=== PATIENT | female | born 1990 | race African-American/Black ===

== ENCOUNTER 2020-02-05 08:00 | Outpatient (CLI) | payer MEDICAID | END 2020-02-05 23:59 | disposition home or self-care (01) | LOC: LAB.WCP 08:00 | PROVIDERS: ATTEND Advanced Practice Midwife | DX: O20.0 Threatened abortion (principal); Z3A.00 Weeks of gestation of pregnancy not specified | CPT/HCPCS: 36415; 84702 ==

== ENCOUNTER 2020-02-07 09:53 | Outpatient (CLI) | payer MEDICAID | END 2020-02-07 23:59 | disposition home or self-care (01) | LOC: LAB.WCP 09:53 | PROVIDERS: ATTEND Advanced Practice Midwife | DX: O20.0 Threatened abortion (principal); Z3A.00 Weeks of gestation of pregnancy not specified | CPT/HCPCS: 36415; 84702 ==

== ENCOUNTER 2020-02-08 11:32 | Emergency (ER) | payer MEDICAID ==
--- NOTE | 2020-02-08 12:06 | ED Physician Documentation ---
PD HPI FEMALE - Stated complaint Stated Complaint: FEM - Chief complaint Chief Complaint: Abd Pain - History obtained from History obtained from: Patient - History of Present Illness Timing - onset: How many days ago (few) Timing - duration: Days (few) Timing - details: Abrupt onset, Still present, Waxing and waning Associated symptoms: Pelvic pain, Vaginal bleeding. No: Fever, Vaginal discharge, Genital sore/lesion, Dysuria Contributing factors: (8 weeks by dates. She does have history of endometriosis and has been having issues with getting conception and was excited about being .) [employer] History: G (1), P (0) Similar symptoms before: Has not had sx before Recently seen: Clinic (She was seen in the clinic a few days ago with the onset of some cramping and spotting. She had a quantitative hCG that was in the 400s. She had a repeat 1 yesterday that was 127. She was having increased cramping and pain today and was referred by Dr. bowling to the ER for ultrasound and evaluation to ensure no ectopic or intra-abdominal bleeding and to better evaluate for the status.) Review of Systems Constitutional: denies: Fever, Chills Cardiac: denies: Chest pain / pressure Respiratory: denies: Dyspnea, Cough GI: reports: Abdominal Pain, Nausea (with the cramps). denies: Vomiting, Diarrhea : reports: Now EGA (8 wks). denies: Dysuria, Discharge Neurologic: reports: Generalized weakness. denies: Near syncope, Syncope PD PAST MEDICAL HISTORY - Past Medical History Cardiovascular: None Respiratory: None [employer]IATE: Endometriosis - Present Medications Home Medications: Ambulatory Orders Medication Instructions Recorded Confirmed Hydrocodone/Acetaminophen [[place] 1 each PO Q6H PRN #15 tablet 02/08/20 5-325 Tablet] Naproxen 500 mg PO BID #20 tablet 02/08/20 Ondansetron Odt [Zofran] 4 mg TL Q6H PRN #10 tablet 02/08/20 - Allergies Allergies/Adverse Reactions: Allergies Allergy/AdvReac Type Severity Reaction Status Date / Time No Known Drug Allergies Allergy Verified 02/08/20 11:36 PD ED PE NORMAL - Vitals Vital signs reviewed: Yes - General General: Alert and oriented X 3, Well developed/nourished, Other (Appears anxious and also tearful and in pain.) - Cardiac Cardiac: RRR (regular but tachycardic), No murmur - Respiratory Respiratory: Clear bilaterally - Abdomen Abdomen: Normal bowel sounds, Soft, Non distended, No organomegaly, Other (Some tenderness in the suprapubic area but no rebound or percussion tenderness. The upper abdomen is nontender.) - Female Female : Deferred - Rectal Rectal: Deferred - Back Back: No CVA TTP - Derm Derm: Normal color, Warm and dry - Neuro Neuro: Alert and oriented X 3, No motor deficit, Normal speech - Psych Psych: No: Normal mood (sad and tearful) Results - Vitals Vitals: Vital Signs - 24 hr 02/08/20 02/08/20 02/08/20 11:36 12:01 12:30 Temperature 37.1 C Heart Rate 117 H 110 H 100 Respiratory 18 20 Rate Blood Pressure 140/104 H 115/93 H O2 Saturation 100 99 100 02/08/20 15:28 Temperature 36.9 C Heart Rate 89 Respiratory Rate Blood Pressure 125/75 O2 Saturation 100 Oxygen O2 Source Room air - Labs Labs: Laboratory Tests 02/08/20 02/08/20 02/08/20 12:04 12:04 12:04 WBC 13.8 H RBC 4.54 Hgb 12.9 Hct 38.9 MCV 85.7 MCH 28.4 MCHC 33.2 RDW 14.3 Plt Count 287 MPV 10.3 Neut # (Auto) 11.3 H Lymph # (Auto) 1.7 [place] # (Auto) 0.7 Eos # (Auto) 0.0 Baso # (Auto) 0.1 Absolute Nucleated RBC 0.00 Nucleated RBC % 0.0 Sodium 136 Potassium 3.6 Chloride 107 Carbon Dioxide 21 Anion Gap 8.0 BUN 10 Creatinine 0.7 Estimated GFR (MDRD) 122 Glucose 119 H Calcium 8.7 Total Bilirubin 1.0 AST 21 ALT 15 Alkaline Phosphatase 63 Total Protein 7.7 Albumin 4.6 Globulin 3.1 Albumin/Globulin Ratio 1.5 Lipase 48 HCG, Quant 79.80 Urine Color Urine Clarity Urine pH Ur Specific [place] Urine Protein Urine Glucose (UA) Urine Ketones Urine Occult Blood Urine Nitrite Urine Bilirubin Urine Urobilinogen Ur Leukocyte Esterase Urine RBC Urine WBC Ur Squamous Epith Cells Urine Bacteria Ur Microscopic Review Urine Culture Comments Blood Type 02/08/20 02/08/20 12:04 12:43 WBC RBC Hgb Hct MCV MCH MCHC RDW Plt Count MPV Neut # (Auto) Lymph # (Auto) [place] # (Auto) Eos # (Auto) Baso # (Auto) Absolute Nucleated RBC Nucleated RBC % Sodium Potassium Chloride Carbon Dioxide Anion Gap BUN Creatinine Estimated GFR (MDRD) Glucose Calcium Total Bilirubin AST ALT Alkaline Phosphatase Total Protein Albumin Globulin Albumin/Globulin Ratio Lipase HCG, Quant Urine Color YELLOW Urine Clarity HAZY Urine pH 8.5 H Ur Specific [place] 1.015 Urine Protein NEGATIVE Urine Glucose (UA) NEGATIVE Urine Ketones NEGATIVE Urine Occult Blood LARGE H Urine Nitrite NEGATIVE Urine Bilirubin NEGATIVE Urine Urobilinogen 0.2 (NORMAL) Ur Leukocyte Esterase NEGATIVE Urine RBC TNTC H Urine WBC 0-3 Ur Squamous Epith Cells RARE Squamous Urine Bacteria Rare Ur Microscopic Review INDICATED Urine Culture Comments NOT INDICATED Blood Type O POSITIVE - Rads (name of study) OB U/S Radiology: Prelim report reviewed (OB ultrasound both transabdominal and transvaginal showed no adnexal masses nor free fluid. Blood flow to both ovaries was normal. There was a small fluid sac in the uterus that could be consistent with a gestational sac measuring at 5 weeks 2 days.), See rad report PD MEDICAL DECISION MAKING - ED course Complexity details: reviewed results (Ultrasound shows a likely intrauterine demise at 5 weeks 2 days which is behind her dates of 8 weeks and would correspond with falling quant detailed of hCG levels as a an incomplete miscarriage. No signs of adnexal abnormalities. She was not on infertility medicines so would not expect multiple gestations.), considered differential (No adnexal abnormalities seen. There is a possible intrauterine gestational sac measuring 5 weeks 2 days. This is 2-1/2 weeks behind her dates and in the setting of a falling hCG level and cramping and bleeding, would suggest a incomplete miscarriage. No signs of ectopic.), d/w patient, d/w strategy consultant (Talked with Dr. bowling who is on for [facility]. At this point would treat with adequate fluids and anti-inflammatories and pain medicine and give more time for completion of the miscarriage. The patient is comfortable with this and prefers that at this point rather than D&C. ) ED course: She is cautioned about signs of excess bleeding or pain or any signs of infection to return for more urgent D&C. Otherwise to follow-up with [facility] early next week. Departure - Departure Disposition: Home, Self Care Clinical Impression: Incomplete miscarriage with blood clot, Uterine pain Condition: Stable Record reviewed to determine appropriate education?: Yes Instructions: ED Miscarriage Incom Follow-Up: Maxwell Zelaya MD [Provider Admit Priv/Credential] - Prescriptions: Hydrocodone/Acetaminophen [[place] 5-325 Tablet] 1 each PO Q6H PRN #15 tablet PRN Reason: Pain Naproxen 500 mg PO BID #20 tablet Ondansetron Odt [Zofran] 4 mg TL Q6H PRN #10 tablet PRN Reason: Nausea / Vomiting Comments: Call the [facility] office today to arrange a follow-up for Tuesday or Tuesday. Stay well-hydrated. Use some anti-inflammatories such as naproxen twice daily. Add ondansetron if needed for nausea. Add Tylenol 4 times a day or hydrocodone if needed for worse pain and cramps. Follow-up with [facility] early next week. Return if worsening pain, persistent or increased bleeding, or any signs of infection such as fever or purulent discharge. Discharge Date/Time: 02/08/20 15:29
[2020-02-08 12:08] LABS: BASOPHILS # (AUTO) 0.1 10^3/uL (0.0-0.1); BASOPHILS % (AUTO) 0.4 %; EOSINOPHILS % (AUTO) 0.1 %; HGB - HEMOGLOBIN 12.9 g/dL (12.0-16.0); LYMPHOCYTES # (AUTO) 1.7 10^3/uL (1.5-3.5); LYMPHOCYTES % (AUTO) 12.4 %; MEAN CORPUSCULAR HEMOGLOBIN 28.4 pg (27.0-31.0); MEAN CORPUSCULAR HGB CONC 33.2 g/dL (32.0-36.0); MEAN CORPUSCULAR VOLUME 85.7 fL (81.0-99.0); MEAN PLATELET VOLUME 10.3 fL (7.9-10.8); MONOCYTES # (AUTO) 0.7 10^3/uL (0.0-1.0); NEUTROPHILS # (AUTO) 11.3 10^3/uL (1.5-6.6); NEUTROPHILS % (AUTO) 81.4 %; PLT - PLATELET COUNT 287 10^3/uL (130-450); RED BLOOD COUNT 4.54 10^6/uL (4.20-5.40); RED CELL DISTRIBUTION WIDTH 14.3 % (12.0-15.0); WHITE BLOOD COUNT 13.8 x10^3/uL (4.8-10.8)
[2020-02-08 12:13] LABS: BILIRUBIN,URINE NEGATIVE (NEGATIVE); GLUCOSE, URINE (UA) NEGATIVE (NEGATIVE); KETONES,URINE (UA) NEGATIVE (NEGATIVE); LEUKOCYTE ESTERASE, URINE NEGATIVE (NEGATIVE); NITRITE,URINE NEGATIVE (NEGATIVE); OCCULT BLOOD,URINE LARGE (NEGATIVE); PH,URINE 8.5 PH (5.0-7.5); PROTEIN,URINE NEGATIVE (NEGATIVE); UROBILINOGEN,URINE 0.2 (NORMAL) E.U./dL (NORMAL)
[2020-02-08 12:14] LABS: CLARITY,URINE HAZY (CLEAR)
[2020-02-08 12:22] LABS: ALBUMIN 4.6 g/dL (3.2-5.5); ALBUMIN/GLOBULIN RATIO 1.5 (1.0-2.2); CALCIUM 8.7 mg/dL (8.5-10.3); CREATININE 0.7 mg/dL (0.4-1.0); TOTAL PROTEIN 7.7 g/dL (6.7-8.2)
[2020-02-08 12:26] LABS: BACTERIA,URINE Rare /HPF (None Seen); RBC,URINE TNTC /HPF (0-5); SQUAMOUS EPITHELIAL CELL,UR RARE Squamous (<= Few)
[2020-02-08] MEDS ORDERED: MORPHINE 2 MG/ML CARPUJECT IVP STA ×2 (12:43→14:14)
[2020-02-08] MEDS ORDERED: ONDANSETRON 4 MG/2 ML VIAL IVP STA (12:43)
[2020-02-08] MEDS ORDERED: KETOROLAC 15 MG/ML VIAL IVP STA (12:43)
[2020-02-08] MEDS ORDERED: SODIUM CHLORIDE 0.9% 1,000 ML IV ONE ×2 (12:43→13:48)
--- NOTE | 2020-02-08 14:16 | Ultrasound Report ---
Reason: early pregnany and cramps Procedure Date: 02/08/2020 Accession Number: [id number] / [id number] Procedure: US - OB First Trimester CPT Code: Final Report FULL RESULT: EXAM: FIRST TRIMESTER OBSTETRIC ULTRASOUND (Less than 11 weeks) EXAM DATE: 02/08/2020 01:09 PM. CLINICAL HISTORY: Early and cramps. LMP: 12/16/2019 (approximately). COMPARISONS: None. TECHNIQUE: Transabdominal and transvaginal ultrasound examination with static image documentation. CLINICAL DATES: EGA 7 weeks 5 days with KALPESH 09/21/2020 based on LMP. ASSESSMENT: Gestational Sac: There is a single tiny fluid collection within the endometrium which may represent an early gestational sac. Mean gestational sac diameter: 5.0 mm = 5 weeks 2 days. Embryo: Not visualized. Cardiac activity: Not visualized. Amniotic fluid: Not accurately assessed at this gestational age. Early placenta: Not visible at this gestational age. Other: No perigestational fluid collection demonstrated. MATERNAL STRUCTURES: Uterus: Anteverted. There is a posterior fundal intramural fibroid measuring 1.2 x 1.2 x 1.2 cm. Cervix: Closed. Right Ovary/Adnexa: The ovary measures 3.0 x 1.9 x 1.8 cm, volume 5.3 cc. Unremarkable. Left Ovary/Adnexa: The ovary measures 2.8 x 1.0 x 2.0 cm, volume 2.9 cc. Unremarkable. Free Fluid: None. Other: None. IMPRESSION: of unknown location. There is a tiny intrauterine fluid collection, which could represent a gestational sac, cyst, or focal fluid. If this is a gestational sac, size would correspond to a gestational age of 5 weeks 2 days. Recommend close clinical follow-up and correlation with serial beta-hCG, and follow-up ultrasound if indicated. [facility]
[2020-02-08] MEDS ORDERED: ACETAMINOPHEN 325 MG TABLET PO STA (15:23)
[2020-02-08 15:29] VITALS: BP 125/75
== END 2020-02-08 15:29 | disposition home or self-care (01) ==
LOC: ED 11:32
DX: O03.4 Incomplete spontaneous abortion without complication (principal)
CPT/HCPCS: 36415; 76801; 76817; 80053; 81001; 81003; 83690; 84702; 85025; 86900; 86901; 87086; 96361; 96374; 96376; 99284

== ENCOUNTER 2020-08-04 09:51 | Outpatient (CLI) | payer MEDICAID ==
[2020-08-04 10:27] LABS: BASOPHILS # (AUTO) 0.1 10^3/uL (0.0-0.1); BASOPHILS % (AUTO) 0.7 %; EOSINOPHILS # (AUTO) 0.1 10^3/uL (0.0-0.7); EOSINOPHILS % (AUTO) 1.2 %; HGB - HEMOGLOBIN 12.7 g/dL (12.0-16.0); LYMPHOCYTES # (AUTO) 1.8 10^3/uL (1.5-3.5); LYMPHOCYTES % (AUTO) 24.5 %; MEAN CORPUSCULAR HEMOGLOBIN 28.5 pg (27.0-31.0); MEAN CORPUSCULAR HGB CONC 33.2 g/dL (32.0-36.0); MEAN CORPUSCULAR VOLUME 85.8 fL (81.0-99.0); MEAN PLATELET VOLUME 10.3 fL (7.9-10.8); MONOCYTES # (AUTO) 0.6 10^3/uL (0.0-1.0); MONOCYTES % (AUTO) 7.8 %; NEUTROPHILS # (AUTO) 4.9 10^3/uL (1.5-6.6); NEUTROPHILS % (AUTO) 65.4 %; PLT - PLATELET COUNT 257 10^3/uL (130-450); RED BLOOD COUNT 4.45 10^6/uL (4.20-5.40); RED CELL DISTRIBUTION WIDTH 13.8 % (12.0-15.0); WHITE BLOOD COUNT 7.5 x10^3/uL (4.8-10.8)
[2020-08-04 10:39] LABS: ALBUMIN 4.6 g/dL (3.2-5.5); ALBUMIN/GLOBULIN RATIO 1.5 (1.0-2.2); ALKALINE PHOSPHATASE 55 IU/L (42-121); ALT ALANINE AMINOTRANSFERASE 13 IU/L (10-60); AST ASPARTATE AMINOTRANSFERASE 18 IU/L (10-42); BILIRUBIN,TOTAL 1.5 mg/dL (0.2-1.0); BUN - BLOOD UREA NITROGEN 13 mg/dL (6-20); CALCIUM 9.2 mg/dL (8.5-10.3); CARBON DIOXIDE - CO2 24 mmol/L (21-32); CHLORIDE 106 mmol/L (101-111); CHOL/HDL RATIO 3.4 (<4.4); CHOLESTEROL 144 mg/dL; CREATININE 0.7 mg/dL (0.4-1.0); GLUCOSE 92 mg/dL (70-100); HDL CHOLESTEROL 42 mg/dL; LDL CHOLESTEROL,CALCULATED 92 mg/dL; LDL/HDL RATIO 2.2 (<4.4); SODIUM 138 mmol/L (135-145); TOTAL PROTEIN 7.6 g/dL (6.7-8.2); VLDL CHOLESTEROL 10 mg/dL
== END 2020-08-04 09:52 | disposition home or self-care (01) ==
LOC: LAB 09:51
PROVIDERS: ATTEND Registered Nurse
DX: F41.0 Panic disorder [episodic paroxysmal anxiety] (principal)
CPT/HCPCS: 36415; 80053; 80061; 82306; 83721; 84443; 85025

== ENCOUNTER 2020-08-08 07:34 | Outpatient (CLI) | payer MEDICAID | END 2020-08-08 07:35 | disposition home or self-care (01) | LOC: DI 07:34 | PROVIDERS: ATTEND Registered Nurse | DX: R01.1 Cardiac murmur, unspecified (principal); F41.0 Panic disorder [episodic paroxysmal anxiety] | CPT/HCPCS: 93306 ==

== ENCOUNTER 2022-01-08 08:00 | Outpatient (CLI) | payer MEDICAID ==
[2022-01-09 00:06] LABS: CHLAMYDIA TRACHOMATIS DNA NEGATIVE (NEGATIVE); NEISSERIA GONORRHOEAE DNA NEGATIVE (NEGATIVE); TRICHOMONAS VAGINALIS DNA NEGATIVE (NEGATIVE)
[2022-01-11 13:36] LABS: HIV AG/AB 4TH GEN NON-REACTIVE (NON-REACTIVE)
[2022-01-11 15:11] LABS: HEPATITIS C ANTIBODY NON-REACTIVE (NON-REACTIVE)
[2022-01-12 14:11] LABS: HSV 1 IGG TYPE SPECIFIC AB <0.90 index; HSV 2 IGG TYPE SPECIFIC AB <0.90 index
== END 2022-01-08 23:59 | disposition home or self-care (01) ==
LOC: LAB.N 08:00
PROVIDERS: ATTEND Physician Assistant
DX: Z11.3 Encounter for screening for infections with a predominantly sexual mode of transmission (principal)
CPT/HCPCS: 36415; 81599; 86592; 86695; 86696; 86803; 87389; 87491; 87591; 87661